=== PATIENT | male | born 1990 | race Two or more races ===

== ENCOUNTER 2019-03-30 09:31 | Outpatient (CLI) | payer OTHER ==
[2019-03-30] MEDS ORDERED: BUFFERED LIDOCAINE 10 ML SYRINGE ONE (09:58)
[2019-03-30] MEDS ORDERED: IOTHALAMATE MEGLUMINE 50 ML VIAL ONE (09:58)
[2019-03-30] MEDS ORDERED: GADOPENTETATE DIMEGLUMINE 5 ML VIAL IVP ONE (09:58)
== END 2019-03-30 09:32 | disposition home or self-care (01) ==
LOC: DI 09:31
PROVIDERS: ATTEND General Practice
DX: Z53.9 Procedure and treatment not carried out, unspecified reason (principal)

== ENCOUNTER 2019-04-07 12:45 | Outpatient (CLI) | payer OTHER ==
[2019-04-07] MEDS ORDERED: BUFFERED LIDOCAINE 10 ML SYRINGE ONE (13:23)
[2019-04-07] MEDS ORDERED: GADOPENTETATE DIMEGLUMINE 5 ML VIAL IVP ONE ×2 (13:24→15:25)
[2019-04-07] MEDS ORDERED: IOTHALAMATE MEGLUMINE 50 ML VIAL ONE (13:24)
[2019-04-07] MEDS ORDERED: BUPIVACAINE 0.5%-EPI 1:200000 PF 10 ML VIAL ONE (14:12)
[2019-04-07] MEDS ORDERED: BUFFERED LIDOCAINE 10 ML SYRINGE IU ONE (15:25)
[2019-04-07] MEDS ORDERED: IOTHALAMATE MEGLUMINE 50 ML VIAL IVP ONE (15:25)
[2019-04-07] MEDS ORDERED: BUPIVACAINE 0.5%-EPI 1:200000 PF 10 ML VIAL IS ONE (15:25)
--- NOTE | 2019-04-07 15:26 | XRAY Report ---
Reason: OTHER INSTABILITY, RIGHT SHOULDER Procedure Date: 04/07/2019 Accession Number: [id number] / [id number] Procedure: FL - Arthrogram Needle Placement CPT Code: FULL RESULT: EXAM: RIGHT SHOULDER ARTHROGRAPHIC INJECTION WITH FLUOROSCOPIC GUIDANCE EXAM DATE: 04/07/2019 02:34 PM. CLINICAL HISTORY: Pain and INSTABILITY, RIGHT SHOULDER. COMPARISON: ARTHROGRAM SHOULDER RT 04/07/2019 2:12 PM. TECHNIQUE: The risks, benefits, and alternatives of the procedure were discussed with the patient. All questions were answered. Written and verbal consent were obtained. The right glenohumeral joint was marked under fluoroscopy and prepped and draped in a sterile manner. Local anesthesia was performed with 1% lidocaine. A 22-gauge needle was then inserted into the glenohumeral joint. 10 mL of a solution containing 25% 1% lidocaine, 25% iodinated contrast, and a 1:200 dilution of gadolinium contrast in sterile saline was then injected. The needle was removed without immediate complication. Other: None. Fluoroscopy Time: 0.2 minutes. Number of Images: 4. FINDINGS: Bones and joints: No fracture or subluxation. Injection: Fluoroscopic images demonstrate needle placement and contrast in the glenohumeral joint. No contrast extravasation outside of the glenohumeral joint. IMPRESSION: Successful fluoroscopically guided arthrographic injection of the right shoulder. [facility]
--- NOTE | 2019-04-08 13:04 | MRI Report ---
Reason: OTHER INSTABILITY, RIGHT SHOULDER Procedure Date: 04/07/2019 Accession Number: [id number] / [id number] Procedure: MRI - Arthrogram Shoulder RT CPT Code: FULL RESULT: EXAM: RIGHT SHOULDER MRI ARTHROGRAM WITH CONTRAST EXAM DATE: 04/07/2019 03:01 PM. CLINICAL HISTORY: Other instability, right shoulder. COMPARISON: None. TECHNIQUE: Multiplanar, multisequence T1-weighted and fluid-sensitive sequences of the shoulder after an arthrographic injection of dilute gadolinium, dictated under a separate exam. Other: None. FINDINGS: Acromioclavicular Region: The acromion is type II. The acromioclavicular joint is unremarkable. The coracoacromial and coracoclavicular ligaments are intact. There is no contrast or fluid in the subacromial/subdeltoid bursa. Glenohumeral Region: No subluxation. No loose bodies. The articular cartilage is unremarkable. The glenohumeral ligaments and joint capsule are unremarkable. Bone Marrow: No fracture, marrow edema or bone lesions. Labrum: Full-thickness anterior labral tear extends into the biceps labral attachment with a type II SLAP configuration. Series 501 image 15, series 601 image 13. Biceps Tendon: The long head of the biceps tendon and biceps sharri are intact. Musculature/Rotator Cuff: There is a small amount of increased T2 signal in the undersurface of the distal infraspinatus. Moderate tendinitis is present. Remainder of the rotator cuff appears unremarkable. Mild increased T2 signal in the distal subscapularis is thought to be due to an artifact of injection. No edema or fatty atrophy. Other: The subcutaneous tissues are unremarkable. IMPRESSION: 1. Type II unipartite undersurface osseous acromion shape. AC joint is unremarkable. 2. Full-thickness anterior labral tear extends into the biceps labral attachment with a type II SLAP configuration. 3. Rotator cuff shows no tear, small amount of undersurface tendinitis involving the infraspinatus. 4. Long head of biceps appears unremarkable. [facility]
== END 2019-04-07 12:46 | disposition home or self-care (01) ==
LOC: DI 12:45
PROVIDERS: ATTEND General Practice
DX: M25.311 Other instability, right shoulder (principal); S43.431A Superior glenoid labrum lesion of right shoulder, initial encounter
CPT/HCPCS: 23350; 73222; 77002; Q9961